=== PATIENT | female | born 1995 | race Caucasian/White ===

== ENCOUNTER 2020-07-09 16:30 | Emergency (ER) | payer MEDICAID ==
[~2020-07-09] VITALS: Ht 154.9 cm; Wt 82.0 kg
[2020-07-09 16:31] VITALS: BP 133/95
[2020-07-09] MEDS ORDERED: PREDNISONE 20MG TABLET PO ONE (17:15)
[2020-07-09] MEDS ORDERED: ACYCLOVIR 400 MG TABLET PO ONE (17:15)
== END 2020-07-09 17:50 | disposition home or self-care (01) ==
LOC: ER 16:30
DX: G51.0 Bell's palsy (principal)
CPT/HCPCS: 81025; 99283; J7512

== ENCOUNTER 2021-03-09 23:21 | Emergency (ER) | payer MEDICAID, OTHER ==
[~2021-03-09] VITALS: Ht 154.9 cm; Wt 73.0 kg
[2021-03-10] MEDS ORDERED: AMOX-424 MT ×2 (01:19→15:44)
[2021-03-10] MEDS ORDERED: AMOXICILLIN/POTASSIUM CLAVULANATE 875/125MG TAB PO ONE (01:30)
[2021-03-10 02:00] VITALS: BP 127/66
== END 2021-03-10 02:00 | disposition home or self-care (01) ==
LOC: ER 23:21
DX: J02.0 Streptococcal pharyngitis (principal)
CPT/HCPCS: 93005; 99283

== ENCOUNTER 2022-01-13 06:24 | Observation (INO) | payer OTHER ==
[~2022-01-13] VITALS: Ht 152.4 cm; Wt 84.4 kg
[~2022-01-13 06:24] MED LIST: AMOX-424 MT
[2022-01-13 08:47] LABS: BASOPHILS % 0.3 % (0.0-2.0); EOSINOPHILS % 0.8 % (0.0-5.0); HEMATOCRIT. 34.5 % (36.0-48.0); HEMOGLOBIN. 11.5 g/dL (12.0-16.0); LYMPHOCYTES % 20.2 % (20.0-50.0); MEAN CORPUSCULAR HEMOGLOBIN 30.5 pg (28.0-32.0); MEAN CORPUSCULAR VOLUME 91.6 fL (81.0-99.0); MEAN PLATELET VOLUME 10.9 fl (7.4-10.4); MONOCYTES % 7.4 % (2.0-8.0); NEUTROPHILS % 71.3 % (40.0-76.0); PLATELET 154 x1000/uL (130-400); RED BLOOD CELL COUNT 3.76 mill/uL (4.2-5.4); RED CELL DISTRIBUTION WIDTH 13.9 % (11.6-14.6)
[2022-01-13 09:10] LABS: CHLORIDE 106 mEq/L (98-107)
[2022-01-13 09:33] LABS: B-HCG QUANTITATIVE 8428 mIU/mL (<3)
[2022-01-13 10:21] LABS: CLARITY URINE CLEAR (CLEAR); COLOR URINE YELLOW (YELLOW); KETONES URINE NEGATIVE (NEGATIVE); LEUKOCYTE ESTERASE URINE 1+ (NEGATIVE); NITRITE URINE NEGATIVE (NEGATIVE); OCCULT BLOOD URINE NEGATIVE (NEGATIVE); PROTEIN URINE NEGATIVE (NEGATIVE); SPECIFIC GRAVITY URINE 1.004 (1.005-1.030); UROBILINOGEN URINE 0.2 E.U./dL (0.2-1.0)
[2022-01-13 10:31] LABS: *AMPHETAMINES SCREEN URINE NEGATIVE (NEGATIVE); *BARBITURATES SCREEN URINE NEGATIVE (NEGATIVE); *BENZODIAZEPINES SCREEN URINE NEGATIVE (NEGATIVE); *COCAINE SCREEN URINE NEGATIVE (NEGATIVE); CANNABINOID URINE SCREEN NEGATIVE (NEGATIVE); METHADONE URINE SCREEN NEGATIVE (NEGATIVE); OPIATES URINE SCREEN NEGATIVE (NEGATIVE); PHENCYCLIDINE URINE SCREEN NEGATIVE (NEGATIVE)
[2022-01-13 11:06] VITALS: BP 138/82
[2022-01-13] MEDS ORDERED: CEPH500C2 MT (11:10)
[2022-01-13] MEDS ORDERED: CEPHALEXIN 250MG CAPSULE PO ONE (11:15)
[2022-01-13] MEDS ORDERED: CEFAZOLIN 2,000 MG in DEXT 5% WATER 100 ML IV NR (14:00)
== END 2022-01-13 19:23 | disposition home or self-care (01) ==
LOC: ER 06:24 → 8 EST LDRP 06:25 → ER 11:45
PROVIDERS: ADMIT Obstetrics & Gynecology; ATTEND Obstetrics & Gynecology
DX: O46.92 Antepartum hemorrhage, unspecified, second trimester (principal); O26.892 Other specified pregnancy related conditions, second trimester; R03.0 Elevated blood-pressure reading, without diagnosis of hypertension; O23.42 Unspecified infection of urinary tract in pregnancy, second trimester; Z3A.21 21 weeks gestation of pregnancy; Z79.82 Long term (current) use of aspirin; Z79.899 Other long term (current) drug therapy
CPT/HCPCS: 36415; 59025; 76805; 80053; 80305; 81003; 84702; 85025; 86850; 86900; 86901; 96365; 99284; G0378; J0690; J7060; 99281